=== PATIENT | male | born 1935 | race Caucasian/White ===

== ENCOUNTER 2024-05-03 16:28 | Inpatient (IN) | payer MEDICARE, SELFPAY ==
[2024-05-03] VITALS (9 sets, daily range): BP systolic 121–170; BP diastolic 61–110; BMI 21.9
[2024-05-03 12:20] LABS: % Basophils 0.2 % (0-2); % Eosinophils 1.2 % (0-6); % Immature Granulocytes 0.7 % (0-0.5); % Lymphocytes 17.3 % (20.5-51.1); % Monocytes 7.8 % (1.7-9.3); % Neutrophils 72.8 % (42.2-75.2); Absolute Eosinophils 0.1 10^3/uL (0-0.7); Absolute Monocytes 0.4 10^3/uL (0.1-0.6); Absolute Neutrophils 4.1 10^3/uL (1.4-6.5); Hematocrit 42.1 % (39.0-52.0); Hemoglobin 13.9 g/dL (13.0-18.0); Mean Corpuscular Hgb 29.6 pg (27.0-31.0); Mean Corpuscular Volume 89.6 fL (80.0-94.0); Mean Platelet Volume 10.7 fL (7.4-10.4); Nucleated Red Blood Cells % 0 % (-); Platelet Count 172 10^3/uL (130-400); Red Cell Dist. Width 13.4 % (11.5-14.5); White Blood Cell Count 5.6 10^3/uL (4.8-10.8)
[2024-05-03 12:30] LABS: ALT (SGPT) 17 U/L (0-50); AST (SGOT) 28 U/L (17-59); Albumin 4.3 g/dl (3.5-5.0); Alkaline Phosphatase 129 U/L (38-126); Blood Urea Nitrogen 34 mg/dl (9-20); Calcium 9.5 mg/dl (8.4-10.2); Carbon Dioxide 20 mmol/L (22-30); Chloride 107 mmol/L (98-107); Estimated Creatinine Clearance 33 ml/min; Glucose 211 mg/dl (70-99); Potassium 4.6 mmol/L (3.5-5.1); Sodium 144 mmol/L (135-145); eGFR 44.23
--- NOTE | 2024-05-03 12:51 | ED.GENMED ---
History of Present Illness
General
Chief Complaint: Fall
Source: patient
Exam Limitations: none
Time Seen by Provider: 05/03/24 12:33
Nursing documentation reviewed up to this point in time: agreed with
History of Present Illness
History of Present Illness:
89 yo male presents to the emergency department after losing his footing and falling. He hit his head, and complains of right hip pain. His daughter notes it is
Past History
Past History
ED Past Medical History: Cancer (Bladder), CVA, GERD, HTN and Hypercholesterolemia
ED Past Surgical History: Other (Bladder and prostate removal)
Social History
Tobacco: Non-smoker
Alcohol: Daily
Personal:
Living: with family
Employment: Other
Family History
Family History: Other
Phy Exam
Physical Exam
Physical Exam:
Physical Exam
General: no apparent distress, not acutely ill
Neck: supple. no meningeal signs. normal posterior pharynx
Heart: s1/s2 regular rate and rhythm, no murmur. equal radial
pulses.
HEENT: Pupils equal round reactive to light, EOMI
Lungs: no acute respiratory distress. clear bilaterally
Abdomen: normal bowel sounds. not tender. no CVAT
Neuro: alert and oriented. no focal neurological deficits cranial nerves II through XII intact
Skin: no rash
Psychiatric: well kept. interactive and cooperative
Extremities: Right leg shortened and externally rotated, right arm contracture from prior stroke. Good distal pulses
Course
Orders/Labs/Results
Orders:
Orders
05/03/24 11:54
CR Hip - RT w/wo Pel 2-3 Vw* Urgent
Comment:
Reason For Exam: fall, hip injury
Include a pelvis x-ray?: Yes
05/03/24 11:57
Complete Blood Count/With Diff Urgent
Comprehensive Metabolic Panel Urgent
05/03/24 12:43
Electrocardiogram (*1) Stat
Reason for Study: PreOp
EKG- Treatment ONCE
05/03/24 12:44
CT Head W/o Iv Contrast Urgent
Comment:
Reason For Exam: fall
05/03/24 12:50
HYDROmorphone [Dilaudid] 0.5 mg IV NOW STA
Ondansetron Injectable [Zofran] 4 mg IV NOW STA
05/03/24 12:53
Type+Screen Urgent
05/03/24 14:58
ABO2 Urgent
BBK Wristband Number:
Associate notified that ABO2 has been ordered: [id number]
Date: 05/03/24
Time: 13:06
Plaster Foreman ID: [id number]
Abnormal Lab Results
05/03/24
11:57
MPV 10.7 H fL
(7.4-10.4)
Absolute Lymphs (auto) 1.0 L 10^3/uL
(1.2-3.4)
Immature Gran % 0.7 H %
(0-0.5)
Lymphocytes % 17.3 L %
(20.5-51.1)
Carbon Dioxide 20 L mmol/L
(22-30)
BUN 34 H mg/dl
(9-20)
Creatinine 1.5 H mg/dL
(0.7-1.3)
Glucose 211 H mg/dl
(70-99)
Alkaline Phosphatase 129 H U/L
(38-126)
05/03/24 11:57
05/03/24 11:57
Vital Signs
Initial and Last Documented VS:
Initial Vital Signs
Temp
97.1 F
05/03/24 11:46
Last Documented Vital Signs
Temp Pulse Resp BP Pulse Ox
97.1 F 100 13 166/94 94
05/03/24 11:46 05/03/24 13:45 05/03/24 13:45 05/03/24 13:33 05/03/24 13:45
MDM/Problems Addressed
Differential Diagnosis Includes:
Right hip fracture, intracranial hemorrhage
MDM/Problems Addressed:
89-year-old male with right femoral neck fracture, no other injuries noted. Admit to hospitalist, Dr. Valiente, orthopedics aware and will schedule patient for Issac arthroplasty on Wednesday.
Chronic conditions affecting care: HTN
Acute Exacerbation and/or Progression of Chronic Illness: HTN
*Radiology
Radiology exam reviewed: preliminary read by ED provider (Right hip x-ray right femoral neck fracture) and radiology read reviewed (CT head no acute findings)
*Pulse Oximetry
Patient hypoxic: no
*EKG
Interpreted by ED Provider?: Yes
EKG Intrepretation Date: 05/03/24
EKG Intrepretation Time: 12:53
Interpretation: abnormal
Comparison EKG: changes noted
Heart Rate: 99
Rate: normal
Rhythm: sinus
[place]: left axis deviation
Interval: normal interval
QRS Pattern: right bundle branch block
Ischemia: no ischemia
*Farm General Manager Interpretation
Rate: normal
Interpretation: normal
Heart Rate: 95
Rhythm: sinus
*Critical Care Note
Total Time (30-74mins, 75-104mins- exclusive of procedures): Not Applicable
Patient Management
Social determinants of health affecting care: Living situation
Discussion with other providers: Hospitalist and Building Equipment Inspector (orthopedics)
Escalation/DeEscalation of care consider admission/obs:
admit indicated
ED Attending Note
-
Portions of this chart may have been created with voice recognition software.� Occasional wrong word or��sound alike� substitutions may have occurred due to the inherent limitations of voice recognition software.
Discharge Plan
Departure
Patient Disposition: Admit
Date of Disposition: 05/03/24
Time of Disposition: 13:40
Admit to: Med/Surg
Presentation/result/management discussed w/ accepting MD/DO: Hospitalist
Patient with high blood pressure during this ER visit?: Yes
Condition: Good
Discharge Problem:
Closed displaced fracture of right femoral neck
Prescriptions:
No Action
cholecalciferol (vitamin D3) 2,000 UNITS tablet
2,000 units PO DAILY
losartan 100 MG tablet
100 mg PO HS
sennosides [senna] 8.6 mg Tablet
8.6 mg PO DAILYPRN PRN (Reason: constipation)
mirtazapine 45 mg Tablet
45 mg PO HS
omeprazole 20 MG capsule,delayed release(DR/EC)
20 mg PO BID
metoprolol tartrate 50 MG tablet
50 mg PO DAILY Qty: 30 0RF
Interventions
Interventions:
*Risk Screen - Suicide Last Done: 05/03/24 11:47
*General Assessment Last Done: 05/03/24 11:46
ED- Fall Risk Assessment Last Done: 05/03/24 11:49
*ED COVID-19 Vaccine History Last Done: 05/03/24 11:47
ED-Musculoskeletal Assessment Last Done: 05/03/24 11:51
ED- Neurological Assessment Last Done: 05/03/24 11:49
ED-Skin Assessment Last Done: 05/03/24 11:55
Discharge Date and Time
Print Language: ROMANSH
[2024-05-03] MEDS: DILAUDID 0.5 MG IV (12:52)
[2024-05-03] MEDS: ZOFRAN 4 MG IV (12:52)
--- NOTE | 2024-05-03 14:48 | HPS.HSE ---
Addendum entered and electronically signed by Baljeet Crum MD 05/03/24 18:09:
Seen and examined by me independently in collaboration with the medical videographer Bandar.
Past medical history/social history/medication/allergies reviewed.
Lab data and imaging data reviewed.
Patient with a mechanical fall which was witnessed but unfortunately sustained a right Femoral neck fracture. He was otherwise in his usual state of health. Daughter who is a retired nurse is present at the bedside.
Hemodynamically stable.
Heart sinus and persisted heart regular.
Chest was clear.
Abdomen benign.
Right residual hemiparesis noted.
Plans for surgical correction of the fracture noted.
From a preop cardiac eval-difficult to assess functional status because of right hemiparesis. RCRI-1 risk factor which puts him at a acceptable risk for cardiovascular event for proposed surgery. No further testing would change that risk. Please
proceed as planned with the surgery.
Pt wishes to be DNR/DNI.
Original Note:
Family Physician
-
Family Physician: Satinder Huerta
Chief Complaint
-
Right femoral neck fracture
History of Present Illness
89-year-old male past medical history of stroke, hypertension, hyperlipidemia, bladder cancer, nephrostomy and urostomy presents to the emergency department after a witnessed mechanical fall. Patient did hit his head but he is not on blood
thinners. Per patient's daughter patient had a stroke previously and since then has had contracture and right lower extremity weakness. In the emergency department patient received x-ray of the hip which demonstrated right femoral neck fracture as
well as CT head without contrast which demonstrated no acute intracranial bleeds. Orthopedics was consulted and is planning on taking the patient for hemiarthroplasty on 05/05/2024.
Medical History
Past Medical History
Past Medical History: Reports Cancer (Bladder cancer), CVA (Previous history of stroke, residual weakness and contracture on the right), HTN and Hypercholesterolemia
Past Surgical History: Reports Urological (Bladder removal, nephrostomy tube, urostomy tube)
Social History
Tobacco: Former Smoker (22-tvcp-voah history former smoker, stopped at age 31)
Alcohol: Occasional (1 drink per week)
Drug: None
Personal:
Living: With Family
Employment: Retired
Family History
Family History: Not pertinent
Allergies / Home Medications
Allergies reflects when Allergies were last updated in [facility].
Home Medications with original date entered in [facility]
Allergy/Medication List:
Allergies
Allergy/AdvReac Type Severity Reaction Status Date / Time
nitrofurantoin Allergy Rash Verified 05/03/24 11:49
diazepam [From Valium] AdvReac Dizziness Verified 05/03/24 11:49
Home Medications
metoprolol tartrate 50 mg tablet 50 mg PO DAILY #30 tabs 05/25/19
cholecalciferol (vitamin D3) 50 mcg (2,000 unit) tablet 2,000 units PO DAILY 08/05/21
losartan 100 mg tablet 100 mg PO HS 08/05/21
mirtazapine 45 mg tablet 45 mg PO HS 05/03/24
omeprazole 20 mg capsule,delayed release 20 mg PO BID 05/03/24
sennosides 8.6 mg tablet (senna) 8.6 mg PO DAILYPRN PRN constipation 05/03/24
Review of Systems
-
History Source: Patient
A 12 point ROS was completed and negative except as noted: No
Constitutional: Reports No Symptoms
Respiratory: Reports No Symptoms
Cardiac: Reports No Symptoms
Abdomen/GI: Reports No Symptoms
: Reports No Symptoms
Musculoskeletal: Reports Joint Pain (Right hip pain to passive and active motion)
Neurological: Reports Weakness (Patient weak on the right compared to left, contracture noted in right upper extremity. Sensation intact)
Physical Exam
Vital Signs
Vital Signs
Temp Pulse Resp BP Pulse Ox
97.1 F 100 13 166/94 94
05/03/24 11:46 05/03/24 13:45 05/03/24 13:45 05/03/24 13:33 05/03/24 13:45
Physical Exam
General: Well Developed, Well Nourished, No Apparent Distress, Comfortable and Conversant
Respiratory: Clear
Cardiac: S1/S2 and Regular Rhythm
GI: Soft, Non Tender, Non Distended and Normal Bowel Sounds
Genito-urinary: Nephrostomy Tubes and Other (Nephrostomy and urostomy tube present)
Skin: Warm and Dry
Neuro: Awake, Alert, Oriented, AO x 3 and Other (Contracture right upper extremity, weakness right lower extremity. Sensation intact bilaterally)
Psych: Calm and Intact Judgment/Insight
Laboratory Results
-
05/03/24 11:57
05/03/24 11:57
Laboratory Results
Total Bilirubin 1.0 mg/dl (0.2-1.3) 05/03/24 11:57
AST 28 U/L (17-59) 05/03/24 11:57
ALT 17 U/L (0-50) 05/03/24 11:57
Alkaline Phosphatase 129 U/L (38-126) H 05/03/24 11:57
Data Reviewed
-
Diagnostic Radiology: Report Reviewed by me and Discussed with Physician
CT Scan: Report Reviewed by me and Discussed with Physician
Lab Data: Labs Reviewed by me and Discussed with Physician
Impression/Plan
-
IMPRESSION: 89-year-old male presents to [place] ED for a witnessed mechanical fall. Found to have right femoral neck fracture.
PLAN:
#Femoral neck fracture
Witnessed mechanical fall, has happened in the past x 3
Patient not on blood thinners
Hip x-ray demonstrates right femoral neck fracture
CT head ED negative for intracranial hemorrhage
Orthopedics planning on taking patient for surgery on 05/05/2024
Bedrest, DVT prophylaxis with subcu heparin
#Preop cardiac eval
No active acute coronary syndrome
No EKG changes
RCRI 1 point, patient is low risk for cardiovascular event during surgery
Recommend continuing with proposed surgery
#Chronic kidney disease
Creatinine on admission 1.5
Per patient's daughter baseline is between 1.4 and 1.6
Currently holding losartan in anticipation for surgery
#Spasms
Patient reports leg spasms after fracture
Consider initiating cyclobenzaprine
#Hypertension
Continue home metoprolol
Currently holding losartan in anticipation for surgery
IV hydralazine for breakthrough hypertension
#GERD
Continue home omeprazole
#Nephrostomy and urostomy tubes
Patient has a history of bladder cancer and nephrolithiasis
Patient has nephrostomy and urostomy tubes currently
Monitor drainage
Anxiety/depression
Continue home mirtazapine
CODE STATUS: DNR/DNI
Diet: IDDSI 6
DVT prophylaxis: Subcu heparin every 12
Patient's daughter Pierre Ohara cell phone number: [phone]
[2024-05-03] MEDS: DILAUDID 0.25 MG IV (17:00)
--- NOTE | 2024-05-03 17:49 | PTCARENOTE ---
[facility] from [facility] s/p R femoral neck fx. Pt transferred from stretcher to bed. Pt has urostomy and R nephrostomy tube. Pt states mild pain at this time. RLE with weak pulses, and limited ROM due to fx. Pt and family oriented to call [facility]
and room, bed locked and in lowest position, call [facility] within reach.
[2024-05-03] MEDS: APRESOLINE 5 MG IV (17:58)
[2024-05-03] MEDS: LOPRESSOR 50 MG PO (17:58)
[2024-05-03] MEDS: COLACE 100 MG PO (20:58)
[2024-05-03] MEDS: PROTONIX 40 MG PO (20:58)
[2024-05-03] MEDS: TYLENOL 650 MG PO ×2 (20:59→23:19)
[2024-05-03] MEDS: SENOKOT 17.2 MG PO (20:59)
[2024-05-03] MEDS: HEPARIN 5000 UNITS SC (21:02)
[2024-05-03] MEDS: REMERON 45 MG PO (22:50)
[2024-05-04] MEDS: TYLENOL 650 MG PO ×5 (03:44→20:49)
[2024-05-04] MEDS: ROXICODONE 5 MG PO ×2 (03:44→08:50)
[2024-05-04 06:17] LABS: % Basophils 0.4 % (0-2); % Eosinophils 3.1 % (0-6); % Immature Granulocytes 0.4 % (0-0.5); % Monocytes 13.5 % (1.7-9.3); % Neutrophils 72.6 % (42.2-75.2); Absolute Eosinophils 0.3 10^3/uL (0-0.7); Absolute Lymphocytes 0.8 10^3/uL (1.2-3.4); Absolute Monocytes 1.1 10^3/uL (0.1-0.6); Absolute Neutrophils 5.9 10^3/uL (1.4-6.5); Hemoglobin 12.7 g/dL (13.0-18.0); Mean Corp Hgb Conc. 33.4 g/dL (33.0-37.0); Mean Corpuscular Hgb 29.7 pg (27.0-31.0); Mean Corpuscular Volume 88.8 fL (80.0-94.0); Mean Platelet Volume 11.4 fL (7.4-10.4); Nucleated Red Blood Cells % 0 % (-); Platelet Count 153 10^3/uL (130-400); Red Blood Cell Count 4.28 10^6/uL (4.70-6.10); Red Cell Dist. Width 13.6 % (11.5-14.5); White Blood Cell Count 8.1 10^3/uL (4.8-10.8)
[2024-05-04 06:54] LABS: ALT (SGPT) 17 U/L (0-50); AST (SGOT) 31 U/L (17-59); Albumin 3.5 g/dl (3.5-5.0); Alkaline Phosphatase 115 U/L (38-126); Blood Urea Nitrogen 35 mg/dl (9-20); Calcium 8.9 mg/dl (8.4-10.2); Carbon Dioxide 19 mmol/L (22-30); Chloride 110 mmol/L (98-107); Estimated Creatinine Clearance 33 ml/min; Glucose 122 mg/dl (70-99); Potassium 4.7 mmol/L (3.5-5.1); Sodium 144 mmol/L (135-145); Total Bilirubin 1.7 mg/dl (0.2-1.3); Total Protein 6.2 g/dl (6.3-8.2); eGFR 44.23
--- NOTE | 2024-05-04 07:53 | W.PN.UPDATE ---
Update Note
Progress Note Update
Full orthopedic consult dictated:
Dx: Displaced right femoral neck fracture
Plan: Discussed with the patient and daughter Pierre Ohara unfortunately he has a displaced right femoral neck fracture which is going to require surgical intervention with cemented hemiarthroplasty. Surgery has tentatively been scheduled for
May 05, [address] Robledo. He is going to be n.p.o. after midnight, antibiotics and antibiotic irrigation ordered. Surgery and blood consent signed by patient and daughter. He does have prior CVA with right-sided weakness so daughter
had to sign.
[2024-05-04 08:00] VITALS: BP 130/71
[2024-05-04 08:45] VITALS: BP 130/71
[2024-05-04] MEDS: SENOKOT 17.2 MG PO ×2 (08:46→20:49)
[2024-05-04] MEDS: PROTONIX 40 MG PO ×2 (08:46→20:49)
[2024-05-04] MEDS: COLACE 100 MG PO ×2 (08:46→20:49)
[2024-05-04] MEDS: VITAMIN D3 (cholecalciferol) 50 MCG PO (08:46)
[2024-05-04] MEDS: LOPRESSOR 50 MG PO (08:46)
[2024-05-04] MEDS: HEPARIN 5000 UNITS SC (08:47)
--- NOTE | 2024-05-04 12:36 | W.PN.HOSP.TC ---
Today's Communication/Plan
-
Await OR tomorrow for right femoral neck fracture repair.
Assessment / Plan
Assessment / Plan
#Femoral neck fracture
Witnessed mechanical fall, has happened in the past x 3
Patient not on blood thinners
Hip x-ray demonstrates right femoral neck fracture
CT head ED negative for intracranial hemorrhage
Orthopedics planning on taking patient for surgery on 05/05/2024
Bedrest, DVT prophylaxis with subcu heparin
#Preop cardiac eval
No active acute coronary syndrome
No EKG changes
RCRI 1 point, patient is low risk for cardiovascular event during surgery
Recommend continuing with proposed surgery
#Chronic kidney disease
Creatinine on admission 1.5
Per patient's daughter baseline is between 1.4 and 1.6
Currently holding losartan in anticipation for surgery
#Spasms
Patient reports leg spasms after fracture
Consider initiating cyclobenzaprine
#Hypertension
Continue home metoprolol
Currently holding losartan in anticipation for surgery. Blood pressure under goal.
IV hydralazine for breakthrough hypertension
#GERD
Continue home omeprazole
#Nephrostomy and urostomy tubes
Patient has a history of bladder cancer and nephrolithiasis
Patient has nephrostomy and urostomy tubes currently
Monitor drainage
Anxiety/depression
Continue home mirtazapine
CODE STATUS: DNR/DNI
Diet: IDDSI 6
DVT prophylaxis: Subcu heparin every 12
Patient's daughter Pierre Ohara cell phone number: [phone]
Anticipated Discharge: > 48 hours
Subjective/Interval History
-
Date of Service: May 04, 2024
await hip fracture repair surgery.
No overnight events.
Denies any shortness of breath or chest pain. No nausea vomiting.
Right hip pain manageable with the pain medication.
Objective Data
-
Labs:
Laboratory Results
05/04/24
04:34
WBC 8.1
Hgb 12.7 L
Hct 38.0 L
Plt Count 153
Sodium 144
Potassium 4.7
Chloride 110 H
Carbon Dioxide 19 L
BUN 35 H
Creatinine 1.5 H
Glucose 122 H
Calcium 8.9
Total Bilirubin 1.7 H
AST 31
ALT 17
Alkaline Phosphatase 115
Vital Signs:
Vital Signs
Temp Pulse Resp BP Pulse Ox
97.5 F 72 18 130/71 100
05/04/24 08:00 05/04/24 08:00 05/04/24 08:00 05/04/24 08:00 05/04/24 08:43
I&O
05/03/24 05/04/24 05/05/24
06:59 06:59 06:59
Intake Total
Output Total 600 / 600
Balance -576 / -576
Review of Systems
-
Constitutional: Denies Fever
EENT: Denies Sore Throat
Respiratory: Denies Cough
Cardiac: Denies Palpitations
Abdomen/GI: Denies Abdominal Pain
Neuro: Denies Dizzy
Physical Exam
-
General: No Apparent Distress
HEENT: Moist Mucous Membranes
Respiratory: Clear to Auscultation
Cardiac: Regular Rhythm and S1/S2
GI: Soft and Nontender
Neuro: AO x 3; Negative No Motor Deficits (Right hemiparesis since yesterday)
Psych: Calm
Data Reviewed
-
Labs: Labs Reviewed by me
--- NOTE | 2024-05-04 14:18 | W.PN.UPDATE ---
Update Note
Progress Note Update
Patient was seen and examined. Son was at bedside. Agree with orthopedic PA note.
Patient does have a history significant of a CVA that Because significant weakness of right upper and lower extremities. He does have foot and leg drop of the right lower extremity pre-existing. He did use a walker for ambulation prior to his fall.
Right lower extremity: Positive foot and leg weakness. Positive logroll.
X-rays AP of the pelvis and AP and lateral of right hip shows a displaced right femoral neck fracture
Impression displaced right femoral neck fracture
Plan: Nonoperative and operative approaches of this were discussed. I recommend right hip hemiarthroplasty. The risks are but are not limited to infection, need for further surgery, need for physical therapy, stiffness, DVT, PE, [place], CVA,
neurovascular impairment, dislocation, periprosthetic fracture, and continued foot drop, catastrophic occurrences, etc. The postoperative regimen was discussed. All questions were answered. Consents were signed and placed on the chart.Patient is
to be n.p.o. past midnight. Anticipated surgery will be midmorning tomorrow
--- NOTE | 2024-05-04 16:45 | CM ---
Met with patient and daughter/primary contact, Pierre Ohara RN; initial assessment completed with daughter
Patient was not wearing hearing aids
Pharmacy verified: [facility] @ [address] [place] [address]
Patient and (who has Dementia) live in a one floor in-law suite attached to son's home; 1 step to enter; bath has shower stall; uses shower chair
Per Daughter, her father is the primary caregiver for her mother
PLOF: Limited mobility of Right Arm; Ambulated w/ rolling walker; needs assistance with some ADLs; feeds and bathes self; able to manage ostomies and medications; they have a cleaning service; able to do the laundry;
daughter prepares meals; does not drive
SNF utilization history: [facility] (not a preference if SNF is recommended)
If acute rehab is recommended, preference is [facility]
If SNF is recommended, [facility] is preference
Patient scheduled for surgery tomorrow, 05/05/24
Plan: disposition at discharge is pending hospital course; CM will monitor for needs and coordinate care
[2024-05-04 16:51] VITALS: BP 129/66
[2024-05-04 20:00] VITALS: BP 124/64
--- NOTE | 2024-05-04 20:13 | W.PN.UPDATE ---
Update Note
Progress Note Update
Hold Heparin now in anticipation of surgery.
[2024-05-04] MEDS: HEPARIN SC (20:36)
[2024-05-04] MEDS: REMERON 45 MG PO (22:23)
[2024-05-04 22:41] VITALS: BP 123/68
[2024-05-05] VITALS (12 sets, daily range): BP systolic 104–150; BP diastolic 57–85
[2024-05-05] MEDS: TYLENOL 650 MG PO ×3 (00:45→20:46)
[2024-05-05] MEDS: TYLENOL PO ×3 (04:45→12:16)
--- NOTE | 2024-05-05 05:59 | PTCARENOTE ---
Pt gown, and linen changed and first CHG wipes complete. Pt confused and not oriented to place while bed change and CHG wipes completed. Pt aggressive to staff and stating he thinks he is in his own home. Continued to reorient pt. Skin tear formed
from grabbing onto bed rails on Left hand. Cleansed with saline and gauze and tape applied.
--- NOTE | 2024-05-05 07:48 | W.PN.UPDATE ---
Update Note
Progress Note Update
Patient resting comfortably in bed this morning. Reports pain in the hip. Plan for OR later today with Dr. Robledo. Remain NPO. Will continue to follow along.
--- NOTE | 2024-05-05 09:01 | W.PN.HOSP.TC ---
Addendum entered and electronically signed by Baljeet Crum MD 05/05/24 15:16:
Seen and examined by me independently in collaboration with the medical equipment technician.
Lab data and imaging data reviewed.
Addendum as below :
Patient seen in his room post surgery.
He is comfortable. He is alert and oriented to place and person. Family at bedside.
Afebrile and hemodynamically stable.
No respiratory distress. Chest clear.
There was a morning report of confusion and agitation. no agitation currently.
Will watch out for post Anesthesia confusion and as well as issues( made aware to me by daughter)
Original Note:
Today's Communication/Plan
-
Patient be taken for surgery by orthopedics for right hip fracture
Assessment / Plan
Assessment / Plan
#Femoral neck fracture
Witnessed mechanical fall, has happened in the past x 3
Patient not on blood thinners
Hip x-ray demonstrates right femoral neck fracture
CT head ED negative for intracranial hemorrhage
Orthopedics planning on taking patient for surgery on 05/05/2024
Patient made n.p.o. after midnight, heparin stopped at night and anticipation for surgery today
#Confusion
Nursing reports patient was agitated and confused overnight, fighting with them
Patient confused on interview this morning, able to be redirected and pleasant
Will try to avoid restraints and sedation if possible
#Preop cardiac eval
No active acute coronary syndrome
No EKG changes
RCRI 1 point, patient is low risk for cardiovascular event during surgery
Recommend continuing with proposed surgery
#Chronic kidney disease
Creatinine on admission 1.5
Per patient's daughter baseline is between 1.4 and 1.6
Currently holding losartan in anticipation for surgery
#Spasms
Patient reports leg spasms after fracture
#Hypertension
Continue home metoprolol
Currently holding losartan in anticipation for surgery. Blood pressure under goal.
IV hydralazine for breakthrough hypertension
#GERD
Continue home omeprazole
#Nephrostomy and urostomy tubes
Patient has a history of bladder cancer and nephrolithiasis
Patient has nephrostomy and urostomy tubes currently
Monitor drainage
Anxiety/depression
Continue home mirtazapine
CODE STATUS: DNR/DNI
Diet: IDDSI 6
DVT prophylaxis: Subcu heparin every 12 (currently holding)
Patient's daughter Pierre Ohara cell phone number: [phone]
Anticipated Discharge: 24 - 48 hours
Subjective/Interval History
-
Date of Service: May 05, 2024
Patient was n.p.o. after midnight in anticipation for surgery, heparin was stopped in anticipation for surgery overnight
Nurse reports episodes of agitation overnight, patient confused and fighting with nursing
Patient hit his arm on bed and now has skin tear
Will try to avoid sedation and restraints if possible
Patient confused at time of interview, able to be redirected and pleasant
Objective Data
-
Vital Signs:
Vital Signs
Temp Pulse Resp BP Pulse Ox
98.3 F 81 16 150/84 95
05/05/24 07:36 05/05/24 07:36 05/05/24 07:36 05/05/24 07:36 05/05/24 07:36
I&O
05/04/24 05/05/24 05/06/24
06:59 06:59 06:59
Intake Total 1200 / 1200
Output Total 600 / 600 650 / 650
Balance -576 / -576 550 / 550
Review of Systems
-
Unable to obtain full review of systems at this time due to: Dementia
Physical Exam
-
General: No Apparent Distress, Conversant and Appears Chronically Ill
Respiratory: Clear to Auscultation
Cardiac: Regular Rhythm and S1/S2
GI: Soft, Nontender, Nondistended and Normal Bowel Sounds
Skin: Warm and Dry
Neuro: Awake; Negative Alert, Oriented or AO x 3
Psych: Confused
Data Reviewed
-
Labs: Labs Reviewed by me and Discussed with Physician
[2024-05-05] MEDS: LOPRESSOR 50 MG PO (09:54)
[2024-05-05] MEDS: PROTONIX 40 MG PO ×2 (09:54→20:46)
[2024-05-05] MEDS: VITAMIN D3 (cholecalciferol) PO (09:54)
[2024-05-05] MEDS: COLACE PO (09:54)
[2024-05-05] MEDS: SENOKOT PO (09:54)
--- NOTE | 2024-05-05 10:09 | PTCARENOTE ---
to OR with 2 transport and 2 family members. pills given with very small amount of applesauce. OR nurse notified.
--- NOTE | 2024-05-05 14:52 | PTCARENOTE ---
pt returned at 1450, ETT GA, 100mls EBL, abductor pillow in place, primaseal in place with mod drainage. 2 daughters in room. bed low 100mls NormR LFA
--- NOTE | 2024-05-05 16:22 | CM ---
Chart reviewed: Patient had surgery today: s/p R Hip hemiarthroplasty; Care team will watch out for post Anesthesia confusion; as well as sundowning issues; PT plans to assess tomorrow
CM met with patient's daughter, Pierre Ohara RN. If SNF recommended, daughter's preference [facility]
Plan: CM will continue to monitor patient; if PT recommends SNF will send referral to [facility] (NO AUTH needed)
[2024-05-05] MEDS: ASPIRIN 325 MG PO (16:42)
[2024-05-05] MEDS: ANCEF 5 IV (18:08)
[2024-05-05] MEDS: NORMOSOL-R/PLASMALYTE-A 1000 IV (20:45)
[2024-05-05] MEDS: SENOKOT 17.2 MG PO (20:46)
[2024-05-05] MEDS: COLACE 100 MG PO (20:46)
[2024-05-05] MEDS: BACTROBAN 2% OINTMENT 1 APPLIC NASAL (20:47)
[2024-05-05] MEDS: REMERON 45 MG PO (22:45)
[2024-05-06] VITALS (9 sets, daily range): BP systolic 88–145; BP diastolic 53–74; PULSE 69; O2SAT 88
[2024-05-06] MEDS: TYLENOL 650 MG PO ×7 (00:31→23:43)
[2024-05-06] MEDS: ANCEF 5 IV (03:20)
[2024-05-06 06:42] LABS: Hematocrit 32.9 % (39.0-52.0); Hemoglobin 11.2 g/dL (13.0-18.0); Mean Corpuscular Hgb 30.5 pg (27.0-31.0); Mean Corpuscular Volume 89.6 fL (80.0-94.0); Mean Platelet Volume 11.4 fL (7.4-10.4); Platelet Count 129 10^3/uL (130-400); Red Blood Cell Count 3.67 10^6/uL (4.70-6.10); Red Cell Dist. Width 13.6 % (11.5-14.5); White Blood Cell Count 8.1 10^3/uL (4.8-10.8)
[2024-05-06 07:06] LABS: Blood Urea Nitrogen 43 mg/dl (9-20); Calcium 8.2 mg/dl (8.4-10.2); Carbon Dioxide 19 mmol/L (22-30); Chloride 108 mmol/L (98-107); Estimated Creatinine Clearance 31 ml/min; Glucose 145 mg/dl (70-99); Potassium 4.5 mmol/L (3.5-5.1); Sodium 140 mmol/L (135-145); eGFR 40.93
[2024-05-06] MEDS: PROTONIX 40 MG PO ×2 (08:04→20:32)
[2024-05-06] MEDS: SENOKOT 17.2 MG PO ×2 (08:05→20:32)
[2024-05-06] MEDS: COLACE 100 MG PO ×2 (08:05→20:32)
[2024-05-06] MEDS: VITAMIN D3 (cholecalciferol) 50 MCG PO (08:06)
[2024-05-06] MEDS: ASPIRIN 325 MG PO (08:06)
[2024-05-06] MEDS: LOPRESSOR 50 MG PO (08:06)
[2024-05-06] MEDS: BACTROBAN 2% OINTMENT 1 APPLIC NASAL ×2 (08:44→20:32)
--- NOTE | 2024-05-06 09:24 | W.PN.HOSP.TC ---
Addendum entered and electronically signed by Baljeet rCum MD 05/06/24 15:19:
Seen and examined by me independently in collaboration with the medical assistant.
Lab data and imaging data reviewed.
Addendum as below :
Postop day 1-no confusion. Hemodynamically stable. No hypoxia. Tolerating diet. Pain adequately controlled.
Worked with PT OT today.
Start discharge planning to rehab. Medically stable for discharge to rehab when bed available.
Original Note:
Today's Communication/Plan
-
Continue working with PT OT
Pain management
SNF to
Assessment / Plan
Assessment / Plan
#Femoral neck fracture
Witnessed mechanical fall, has happened in the past x 3
Patient not on blood thinners
Hip x-ray demonstrates right femoral neck fracture
CT head ED negative for intracranial hemorrhage
Patient's status post orthopedic right hip surgery on 05/05/2024
Continue working with PT OT
Post op pain 0/10 patient requiring no pain medications
Tentatively planning to discharge to [facility]
#Confusion
Nursing reports patient slightly confused overnight
Family hired a outside sitter to be with patient overnight
Will continue to avoid restraints and sedation if possible
#Chronic kidney disease
Creatinine on admission 1.5, today 1.6
Per patient's daughter baseline is between 1.4 and 1.6
#Spasms
Patient reports leg spasms after fracture
#Hypertension
Continue home metoprolol
Restarted losartan with SBP holding parameters
Blood pressure under goal.
IV hydralazine for breakthrough hypertension
#GERD
Continue home omeprazole
#Nephrostomy and urostomy tubes
Patient has a history of bladder cancer and nephrolithiasis
Patient has nephrostomy and urostomy tubes currently
Monitor drainage
Anxiety/depression
Continue home mirtazapine
CODE STATUS: DNR/DNI
Diet: IDDSI 6
DVT prophylaxis: Subcu heparin every 12 (currently holding)
Patient's daughter Pierre Ohara cell phone number: [phone]
Anticipated Discharge: > 48 hours
Subjective/Interval History
-
Date of Service: May 06, 2024
Nurse reports slight episode of confusion overnight, but redirectable
Patient had a sitter in room that was paid for by the family, had a good night with sitter
Objective Data
-
Labs:
Laboratory Results
05/06/24
06:05
WBC 8.1
Hgb 11.2 L
Hct 32.9 L
Plt Count 129 L
Sodium 140
Potassium 4.5
Chloride 108 H
Carbon Dioxide 19 L
BUN 43 H
Creatinine 1.6 H
Glucose 145 H
Calcium 8.2 L
Vital Signs:
Vital Signs
Temp Pulse Resp BP Pulse Ox
97.6 F 93 16 145/71 94
05/06/24 07:59 05/06/24 07:59 05/06/24 07:59 05/06/24 07:59 05/06/24 07:59
I&O
05/05/24 05/06/24 05/07/24
06:59 06:59 06:59
Intake Total 1200 / 1200 740 / 740
Output Total 650 / 650 750 / 750 120 / 120
Balance 550 / 550 -10 / -10 -120 / -120
Review of Systems
-
Unable to obtain full review of systems at this time due to: Dementia
Constitutional: Reports No Symptoms
Respiratory: Reports No Symptoms
Cardiac: Reports No Symptoms
Musculoskeletal: Reports No Symptoms
Physical Exam
-
General: No Apparent Distress, Comfortable and Conversant
Respiratory: Clear to Auscultation
Cardiac: Regular Rhythm and S1/S2
GI: Soft, Nontender, Nondistended and Normal Bowel Sounds
Musculoskeletal: No Edema and Other (Patient had no pain on palpation of right hip)
Skin: Warm and Dry
Neuro: Other (Right side weaker than left, known, history of prior stroke. Contracture of right arm)
Psych: Calm and Confused
Data Reviewed
-
Diagnostic Radiology: Report Reviewed by me and Discussed with Physician
Labs: Labs Reviewed by me and Discussed with Physician
--- NOTE | 2024-05-06 10:56 | CM ---
CM following. PT eval post op pending.
--- NOTE | 2024-05-06 11:17 | W.PN.ORTHO ---
Today's Communication / Plan
-
89-year-old male postop day 1 right hip hemiarthroplasty with Dr. Robledo.
-PT/OT/DC planning. Assist devices as indicated. Fall precautions and early mobility. History of right-sided weakness
-Posterior hip precautions x 6 weeks
-ASA for DVT prophylaxis x 4 weeks unless recommended otherwise per primary
-Diet per primary
-Pain control with current regimen
-Orthopedic surgery will continue to follow
Assessment
.
Distal Motor Intact: Yes
Dressing:
Clean, dry and intact.
Assessment:
Postoperative images show status post right hip hemiarthroplasty without evidence of hardware or osseous complication
Plan
.
Surgery / Date: 05/05/2024 R hip hemiarthroplasty w/ Dr. Robledo
Activity:
Out of bed.
PT/OT
Subjective
.
.:
Patient resting comfortably.
Vital Signs and Labs
.
Vital Signs and Labs:
Lab Results
05/06/24 06:05
05/06/24 06:05
Temp Pulse Resp BP Pulse Ox
97.6 F 93 16 145/71 94
05/06/24 07:59 05/06/24 07:59 05/06/24 07:59 05/06/24 07:59 05/06/24 07:59
Non-invasive Hgb result: 11
Physical Exam
-
Examination of the right lower extremity shows intact dressing with no surrounding erythema or drainage. Mild central strikethrough. Equal leg length. Demonstrates motor and sensation intact L5-S1 to baseline
[2024-05-06] MEDS: REMERON 45 MG PO (22:23)
--- NOTE | 2024-05-07 01:36 | W.PN.UPDATE ---
Update Note
Progress Note Update
RN notifies RADIOLOGY THERAPIST patient has a strong odor to urine in Urostomy, yellow and cloudy urine. No leakage and bag was changed recently per RN. no fever chills, will order a UA
[2024-05-07] MEDS: TYLENOL PO ×2 (04:54→23:05)
[2024-05-07 05:24] LABS: Urine Albumin Trace (Neg - Trace); Urine Bilirubin Negative (Negative); Urine Character Slightly Cloudy (Clear); Urine Color Yellow; Urine Glucose Negative (Negative); Urine Ketone Negative (Negative); Urine Leukocyte 2+ (Negative); Urine Nitrite Negative (Negative); Urine Occult Blood Trace (Negative); Urine Urobilinogen Negative (Neg - 1+)
[2024-05-07 06:15] LABS: Urine Bacteria Many (Negative); Urine Mucus Moderate; Urine White Cell 60-70 /HPF (0-5)
[2024-05-07 06:17] LABS: Urine Amorphous Seen; Urine Squamous Cell >30 /LPF (Few)
[2024-05-07 06:33] LABS: Hematocrit 33.1 % (39.0-52.0); Hemoglobin 11.2 g/dL (13.0-18.0); Mean Corp Hgb Conc. 33.8 g/dL (33.0-37.0); Mean Corpuscular Hgb 30.9 pg (27.0-31.0); Mean Corpuscular Volume 91.4 fL (80.0-94.0); Mean Platelet Volume 11.2 fL (7.4-10.4); Platelet Count 145 10^3/uL (130-400); Red Blood Cell Count 3.62 10^6/uL (4.70-6.10); Red Cell Dist. Width 14.1 % (11.5-14.5); White Blood Cell Count 7.4 10^3/uL (4.8-10.8)
[2024-05-07 07:11] LABS: Blood Urea Nitrogen 45 mg/dl (9-20); Calcium 8.3 mg/dl (8.4-10.2); Carbon Dioxide 23 mmol/L (22-30); Chloride 108 mmol/L (98-107); Estimated Creatinine Clearance 29 ml/min; Glucose 107 mg/dl (70-99); Potassium 4.3 mmol/L (3.5-5.1); Sodium 141 mmol/L (135-145); eGFR 38.06
[2024-05-07 07:15] VITALS: BP 159/79
[2024-05-07] MEDS: TYLENOL 650 MG PO ×4 (08:50→19:36)
[2024-05-07] MEDS: ASPIRIN 325 MG PO (08:51)
[2024-05-07] MEDS: VITAMIN D3 (cholecalciferol) 50 MCG PO (08:51)
[2024-05-07] MEDS: PROTONIX 40 MG PO ×2 (08:51→19:36)
[2024-05-07] MEDS: SENOKOT 17.2 MG PO (08:52)
[2024-05-07] MEDS: LOPRESSOR 50 MG PO (08:52)
[2024-05-07] MEDS: COZAAR 100 MG PO (08:53)
[2024-05-07] MEDS: COLACE 100 MG PO (08:55)
--- NOTE | 2024-05-07 10:59 | W.PN.ORTHO ---
Today's Communication / Plan
-
89-year-old male postop day 2 right hip hemiarthroplasty with Dr. Robledo.
-Dressing change with no active bleeding. Surgical site well-approximated without surrounding erythema or drainage
-PT/OT/DC planning. Assist devices as indicated. Fall precautions and early mobility. History of right-sided weakness
-Posterior hip precautions x 6 weeks
-ASA for DVT prophylaxis x 4 weeks unless recommended otherwise per primary
-Diet per primary
-Pain control with current regimen
-Orthopedic surgery will follow peripherally; discharge information completed. Please reengage with further questions or concerns
Assessment
.
Distal Motor Intact: Yes
Dressing:
Clean, dry and intact. Mild strikethrough
Plan
.
Surgery / Date: 05/05/2024 R hip hemiarthroplasty w/ Dr. Robledo
Activity:
Out of bed.
PT/OT
Subjective
.
.:
Patient resting comfortably.
Vital Signs and Labs
.
Vital Signs and Labs:
Lab Results
05/07/24 05:44
05/07/24 05:44
Temp Pulse Resp BP Pulse Ox
97.5 F 87 18 159/79 96
05/07/24 07:15 05/07/24 07:15 05/07/24 07:15 05/07/24 07:15 05/07/24 07:15
Non-invasive Hgb result: 12.8
--- NOTE | 2024-05-07 11:45 | W.PN.HOSP.TC ---
Today's Communication/Plan
-
Discharge planning to SNF
Assessment / Plan
Assessment / Plan
Assessment
89-year-old male with past medical history significant for stroke, hypertension, hyperlipidemia, bladder cancer, nephrostomy/urostomy presented after witnessed mechanical fall. CT head�no acute intracranial bleeds. X-ray of the hip showed evidence
of right femoral neck fracture. Orthopedics was consulted and patient underwent right hip hemiarthroplasty, POD#2.
Impression
Right femoral neck fracture
Asymptomatic bacteriuria/pyuria
Chronic kidney disease
Hypertension
GERD
History of bladder cancer/ nephrolithiasis
Anxiety/depression
Plan
# Right femoral neck fracture s/p right hip hemiarthroplasty, POD #2
Witnessed mechanical fall
Patient not on blood thinners
Hip x-ray demonstrates right femoral neck fracture
CT head ED negative for intracranial hemorrhage
Continue working with PT OT
Post op pain 0/10 patient requiring no pain medications
Tentatively planning to discharge to [facility]
#Asymptomatic bacteriuria/pyuria
Patient is afebrile
No elevated white count
Microscopic hematuria
No CVA tenderness on exam
Patient on nephrostomy/urostomy tubes
Monitor off of antibiotics for now
Trend CBC, temperatures
Monitor nephrostomy/urostomy tube output.
#Chronic kidney disease
Creatinine on admission 1.5, today 1. 7
Per patient's daughter baseline is between 1.4 and 1.6
Monitor BMP
#Hypertension
Continue home metoprolol
Restarted losartan with SBP holding parameters
Blood pressure under goal.
IV hydralazine for breakthrough hypertension
#GERD
Continue home omeprazole
#History of bladder cancer and nephrolithiasis
Patient has nephrostomy and urostomy tubes in place
Monitor drainage
#Anxiety/depression
Continue home mirtazapine
DVT prophylaxis
Aspirin
DNR
Anticipated Discharge: Within 24 hours
Subjective/Interval History
-
Date of Service: May 07, 2024
Patient reports no pain at the operated site. No fever/chills overnight.
As per the providers note overnight�patient has a strong odor to urine in Urostomy, yellow and cloudy urine. Urinalysis was ordered.
Objective Data
-
Labs:
Laboratory Results
05/07/24
05:44
WBC 7.4
Hgb 11.2 L
Hct 33.1 L
Plt Count 145
Sodium 141
Potassium 4.3
Chloride 108 H
Carbon Dioxide 23
BUN 45 H
Creatinine 1.7 H
Glucose 107 H
Calcium 8.3 L
Vital Signs:
Vital Signs
Temp Pulse Resp BP Pulse Ox
97.5 F 87 18 159/79 96
05/07/24 07:15 05/07/24 07:15 05/07/24 07:15 05/07/24 07:15 05/07/24 07:15
I&O
05/06/24 05/07/24 05/08/24
06:59 06:59 06:59
Intake Total 740 / 740 1020 / 1020
Output Total 750 / 750 820 / 820
Balance -10 / -10 200 / 200
Review of Systems
-
All other systems: Reviewed and negative (As per the history)
Physical Exam
-
General: No Apparent Distress and Comfortable
HEENT: Normocephalic and Atraumatic
Respiratory: Clear to Auscultation
Cardiac: Regular Rhythm and S1/S2
GI: Soft, Nontender, Nondistended and Normal Bowel Sounds
Musculoskeletal: Other (Contracture of the right upper extremity, weakness secondary to CVA. Right lower extremity-intact dressing at the operated site. Distal neurovasculature intact.)
Skin: Warm and Dry
Neuro: Awake, Alert, Oriented, AO x 3 and Other (Weakness in the right upper and lower extremity compared to the left-known history of prior stroke)
Psych: Calm
[2024-05-07 12:17] VITALS: BP 119/63; PULSE 73; O2SAT 95
[2024-05-07 15:15] VITALS: BP 103/51
--- NOTE | 2024-05-07 15:22 | W.PN.UPDATE ---
Update Note
Progress Note Update
Seen and examined by me independently in collaboration with the hospitalist medical director.
Lab data and imaging data reviewed.
Addendum as below :
Doing well postoperatively. No new issues.
Continue with current treatments.
Medically stable for discharge to rehab when bed available.
[2024-05-07] MEDS: COLACE PO (19:36)
[2024-05-07] MEDS: SENOKOT PO (19:36)
[2024-05-07] MEDS: REMERON 45 MG PO (21:09)
[2024-05-07 23:05] VITALS: BP 121/95
[2024-05-08] MEDS: TYLENOL PO (03:47)
[2024-05-08 07:16] VITALS: BP 155/81
--- NOTE | 2024-05-08 07:23 | W.PN.HOSP.TC ---
Addendum entered and electronically signed by Julianne Eldridge MD 05/08/24 18:36:
I saw and evaluated the patient independently. I reviewed the resident�s note and agree with findings and plan as documented by Dr. Cueto.
GENERAL: chronically ill appearing male in no apparent distress
HEENT: NC/AT
HEART: regular rate and rhythm, +S1, +S2
LUNGS : clear to auscultation bilaterally
ABDOM: soft, nontender, nondistended, + bowel sounds
EXT: no cyanosis, clubbing, or edema
Right femoral neck fracture due to witnessed mechanical fall s/p right hip hemiarthroplasty, POD #3--apprec ortho--DVT prophylaxis of 325mg daily x 4 weeks--pt accepted to SNF at [facility] (on admission, CT head ED negative for intracranial
hemorrhage)
Asymptomatic bacteriuria/pyuria--afebril, WBC WNL--pt with nephrostomy and urostomy so likely will always be 'positive' for hematuria/bacteriuria--no need for ABX
Chronic kidney disease--presumed stage 3--Per patient's daughter baseline is between 1.4 and 1.6
Essential Hypertension--Continue home metoprolol/losartarn
GERD--Continue home omeprazole
History of bladder cancer and nephrolithiasis--Patient has nephrostomy and urostomy tubes in place
Anxiety/depression-Continue home mirtazapine
DVT prophylaxis--Aspirin
Code status --DNR
OK for d/c to [facility] when bed available
Original Note:
Today's Communication/Plan
-
Discharge patient o [facility]
Assessment / Plan
Assessment / Plan
Assessment
89-year-old male with past medical history significant for stroke, hypertension, hyperlipidemia, bladder cancer, nephrostomy/urostomy presented after witnessed mechanical fall. CT head�no acute intracranial bleeds. X-ray of the hip showed evidence
of right femoral neck fracture. Orthopedics was consulted and patient underwent right hip hemiarthroplasty, POD#3.
Impression
Right femoral neck fracture
Asymptomatic bacteriuria/pyuria
Chronic kidney disease
Hypertension
GERD
History of bladder cancer/ nephrolithiasis
Anxiety/depression
Plan
# Right femoral neck fracture s/p right hip hemiarthroplasty, POD #3
Witnessed mechanical fall
Patient not on blood thinners
Hip x-ray demonstrates right femoral neck fracture
CT head ED negative for intracranial hemorrhage
Post op pain 0/10 patient requiring no pain medications
Discharge to [facility] once bed availability confirmed
#Asymptomatic bacteriuria/pyuria
Patient is afebrile
No elevated white count
Microscopic hematuria
No CVA tenderness on exam
Patient on nephrostomy/urostomy tubes
#Chronic kidney disease
05/07 1.7
Per patient's daughter baseline is between 1.4 and 1.6
Monitor BMP
#Hypertension
Continue home metoprolol
Contiue losartan with SBP holding parameters ,continue on discharge
#GERD
Continue home omeprazole
#History of bladder cancer and nephrolithiasis
Patient has nephrostomy and urostomy tubes in place
Monitor drainage
#Anxiety/depression
Continue home mirtazapine
DVT prophylaxis
Aspirin
DNR
Anticipated Discharge: Today
Subjective/Interval History
-
Date of Service: May 08, 2024
No active issues, patient stable, afebrile and lab values are wnl
Objective Data
-
Vital Signs:
Vital Signs
Temp Pulse Resp BP Pulse Ox
98.7 F 88 24 121/95 94
05/07/24 23:05 05/07/24 23:05 05/07/24 23:05 05/07/24 23:05 05/07/24 23:05
I&O
05/07/24 05/08/24 05/09/24
06:59 06:59 06:59
Intake Total 1020 / 1020 720 / 720
Output Total 820 / 820 1045 / 1045
Balance 200 / 200 -325 / -325
Review of Systems
-
History Source: Patient and Family
All other systems: Reviewed and negative
Physical Exam
-
General: No Apparent Distress and Comfortable
HEENT: Normocephalic and Moist Mucous Membranes
Respiratory: Clear to Auscultation
Cardiac: Regular Rhythm and S1/S2
GI: Soft and Nontender
Genito-urinary: No Costovertebral Tender and Nephrostomy Tubes
Musculoskeletal: No Clubbing, No Cyanosis and No Edema
Skin: Warm and Dry
Neuro: Awake, Alert and No Motor Deficits (right lower extremity hemiparesis)
Psych: Calm
[2024-05-08] MEDS: COLACE PO (08:38)
[2024-05-08] MEDS: SENOKOT PO (08:39)
[2024-05-08] MEDS: ASPIRIN 325 MG PO (09:09)
[2024-05-08] MEDS: COZAAR 100 MG PO (09:09)
[2024-05-08] MEDS: VITAMIN D3 (cholecalciferol) 50 MCG PO (09:09)
[2024-05-08] MEDS: LOPRESSOR 50 MG PO (09:09)
[2024-05-08] MEDS: TYLENOL 650 MG PO ×4 (09:09→19:42)
[2024-05-08] MEDS: PROTONIX 40 MG PO ×2 (09:09→19:42)
[2024-05-08 12:13] VITALS: BP 112/74; BP 131/66; PULSE 81; O2SAT 93
[2024-05-08 12:17] VITALS: BP 131/66; PULSE 88; O2SAT 94
--- NOTE | 2024-05-08 14:13 | CM ---
Addendum entered by Cecille Lee 05/08/24 16:03:
Transport at 5:30-6PM
Facility and pts daughter Pierre made aware of transport time
Addendum entered by Cecille Lee 05/08/24 15:09:
Pt medically ready for discharge
Spoke with Virginia at [facility] - can accept today
Discussed with pts anushka Jay - agrees with plan for transfer
Plan - transfer to [facility]
R - [phone]
F - [phone]
Original Note:
Case management following for discharge planning
Chart reviewed and met with pt at bedside
PT/OT recs SNF
Accepted at [facility] pend bed availability on day of d/c
CM will cont to be available for discharge needs
Plan - anticipate transfer to [facility] when medically ready
[2024-05-08 15:25] VITALS: BP 142/77
--- NOTE | 2024-05-08 17:21 | W.DCSUMMARY ---
Addendum entered and electronically signed by Julianne Eldridge MD 05/08/24 17:44:
Read, reviewed, and agree. See same day progress note for additional details. Time spent coordinating care, DC planning, review of DC plan of care with resident, transition of care, review of records in EMR, med rec, consults, notes, d/w
consultants, nursing, family, and CM = 32 minutes. Patient actually being discharged to [facility] nursing [facility]. Patient is stable for discharge at this time.
Original Note:
Discharge Summary
Discharge Data
Date of Admission: 05/03/24
Date of Discharge: 05/08/24
-
Pending Results: No
Hospital Course
89/M with past medical history of stroke(right sided hemiparesis), Hypertension, Hyperlipidemia, bladder cancer, with nephrostomy and urostomy tubes in place presented to emergency department after a mechanical fall.He has a residual right lower
extremity weakness and contracture. An xray of the right hip showed fracture of right femoral neck. Orthopedics was consulted and a right hip hemiarthroplasty was done. Patient's post operative recovery phase was uneventful. He is afebrile and his
wbc count is within normal limits.
A ct scan of head was done to rule out bleeds. It was wnl.
He is being discharged to [facility].
Discharge Plan
-
Patient Disposition: Detention/SNF
Discharge Diagnosis/Procedures: Right hip hemiarthroplasty with Dr. Nadine Robledo 05 May 2024, asymptomatic bacteriuria, chronic kidney disease presumed stage III, essential hypertension, gastroesophageal reflux disease, history of bladder
cancer with nephrolithiasis, anxiety/depression
Condition: Good
Diet: As tolerated
Activity: As tolerated and With Walker
Additional Activity: Posterior hip precautions x 6 weeks. Hip abduction pillow while in bed
Driving Restrictions: Not until seen by your Dr
Bathing Restrictions: OK to Shower
Wound Care: Maintain dressing until 10 to 14 days from surgery. [place] may be removed between 10 and 14 days from surgery and can be done at rehab center if still present. Please contact our office if there is drainage or other wound concerns.
Instructions: Bipolar Hip Replacement (DC)
Referrals:
Satinder Huerta MD [Family Provider] - in less than 1 week
Nadine Robledo I., DO [Active] - (If at rehab center and jono may be removed there this will be done between 10 and 14 days from date of surgery. Plan for outpatient follow-up at 4 weeks from date of surgery. Contact our office sooner for
questions or concerns. If discharged from rehab prior to 10 to 14 days from date of surgery please contact our office to be scheduled for staple removal and wound check)
Additional Discharge Medication Instructions: please take aspirin with food
Prescriptions:
New
acetaminophen 325 mg Tablet
650 mg PO Q4HWA Qty: 0 0RF
aspirin 325 mg Tablet
325 mg PO DAILY Qty: 0 0RF
Continued
cholecalciferol (vitamin D3) 2,000 UNITS tablet
2,000 units PO DAILY
losartan 100 MG tablet
100 mg PO HS
sennosides [senna] 8.6 mg Tablet
8.6 mg PO DAILYPRN PRN (Reason: constipation)
mirtazapine 45 mg Tablet
45 mg PO HS
omeprazole 20 MG capsule,delayed release(DR/EC)
20 mg PO BID
metoprolol tartrate 50 MG tablet
50 mg PO DAILY Qty: 30 0RF
Discharge Orders:
Discharge Patient (As Directed); Ordered 05/08/24
Ordered By: Daphne Cueto
Discharge Date and Time
Print Language: CONGOLESE
--- NOTE | 2024-05-08 17:34 | W.DCSUMMARY ---
Discharge Summary
Discharge Data
Date of Admission: 05/03/24
Date of Discharge: 05/08/24
-
Pending Results: No
Hospital Course
89/Male with past medical history of stroke(right sided, residual hemiparesis and contracture in right lower extremity),hypertension,hyperlipidemia, bladder cancer, nephrostomy and urostomy tubes in place presented to emergency department with right
hip pain after he had a fall. He hit his head so a ct was done to rule out any intracranial bleed. An xray of right hip was done that showed right femoral neck fracture, orthopedics was consulted and right hemiarthroplasty was done. patient's
post-op recovery was uneventful.
He is afebrile, his lab values are wnl.
he is being discharged to [facility].
Discharge Plan
-
Patient Disposition: Half-Way/SNF
Discharge Diagnosis/Procedures: Right hip hemiarthroplasty with Dr. Nadine Robledo 05 May 2024, asymptomatic bacteriuria, chronic kidney disease presumed stage III, essential hypertension, gastroesophageal reflux disease, history of bladder
cancer with nephrolithiasis, anxiety/depression
Condition: Good
Diet: As tolerated
Activity: As tolerated and With Walker
Additional Activity: Posterior hip precautions x 6 weeks. Hip abduction pillow while in bed
Driving Restrictions: Not until seen by your Dr
Bathing Restrictions: OK to Shower
Wound Care: Maintain dressing until 10 to 14 days from surgery. [place] may be removed between 10 and 14 days from surgery and can be done at rehab center if still present. Please contact our office if there is drainage or other wound concerns.
Instructions: Bipolar Hip Replacement (DC)
Referrals:
Satinder Huerta MD [Family Provider] - in less than 1 week
Nadine Robledo I., DO [Active] - (If at rehab center and [place] may be removed there this will be done between 10 and 14 days from date of surgery. Plan for outpatient follow-up at 4 weeks from date of surgery. Contact our office sooner for
questions or concerns. If discharged from rehab prior to 10 to 14 days from date of surgery please contact our office to be scheduled for staple removal and wound check)
Additional Discharge Medication Instructions: please take aspirin with food
Prescriptions:
New
acetaminophen 325 mg Tablet
650 mg PO Q4HWA Qty: 0 0RF
aspirin 325 mg Tablet
325 mg PO DAILY Qty: 0 0RF
Continued
cholecalciferol (vitamin D3) 2,000 UNITS tablet
2,000 units PO DAILY
losartan 100 MG tablet
100 mg PO HS
sennosides [senna] 8.6 mg Tablet
8.6 mg PO DAILYPRN PRN (Reason: constipation)
mirtazapine 45 mg Tablet
45 mg PO HS
omeprazole 20 MG capsule,delayed release(DR/EC)
20 mg PO BID
metoprolol tartrate 50 MG tablet
50 mg PO DAILY Qty: 30 0RF
Discharge Orders:
Discharge Patient (As Directed); Ordered 05/08/24
Ordered By: Daphne Cueto
Discharge Date and Time
Print Language: SPANISH
[2024-05-08] MEDS: SENOKOT 17.2 MG PO (19:42)
[2024-05-08] MEDS: COLACE 100 MG PO (19:44)
[2024-05-08 20:10] VITALS: BP 148/70
== END 2024-05-08 20:10 | DRG 522 ==
LOC: 2 SOUTH 16:28
PROVIDERS: Emergency Medicine; Nurse Practitioner Gerontology; ADMITTING PHYSICIAN Internal Medicine; ATTENDING PHYSICIAN Internal Medicine; CONSULT PHYSICIAN Orthopaedic Surgery; EMERGENCY PHYSICIAN Emergency Medicine; FAMILY PHYSICIAN Internal Medicine
PROC: 0SRR0J9 Replacement of Right Hip Joint, Femoral Surface with Synthetic Substitute, Cemented, Open Approach (ICD-10-PCS; 2024-05-05)
DX: S72.001A Fracture of unspecified part of neck of right femur, initial encounter for closed fracture (principal); I69.351 Hemiplegia and hemiparesis following cerebral infarction affecting right dominant side; I12.9 Hypertensive chronic kidney disease with stage 1 through stage 4 chronic kidney disease, or unspecified chronic kidney disease; N18.30 Chronic kidney disease, stage 3 unspecified; F32.A Depression, unspecified; W19.XXXA Unspecified fall, initial encounter; M21.371 Foot drop, right foot; G57.21 Lesion of femoral nerve, right lower limb; E78.00 Pure hypercholesterolemia, unspecified; Z66 Do not resuscitate; F41.9 Anxiety disorder, unspecified; K21.9 Gastro-esophageal reflux disease without esophagitis; K59.00 Constipation, unspecified; Z99.89 Dependence on other enabling machines and devices; Z79.899 Other long term (current) drug therapy; Z85.51 Personal history of malignant neoplasm of bladder; Z87.891 Personal history of nicotine dependence; Z88.8 Allergy status to other drugs, medicaments and biological substances
CPT/HCPCS: 70450; 73502; 80048; 80053; 81003; 81015; 85025; 85027; 86850; 86900; 86901; 93005; 96374; 96375; 97163; 97167; 97530; 97535; 99285; C1713; C1776

== ENCOUNTER → 2024-05-10 10:21 | Outpatient (REF) | payer OTHER, MEDICARE, SELFPAY ==
[2024-05-10 12:23] LABS: % Basophils 0.3 % (0-2); % Eosinophils 5.4 % (0-6); % Immature Granulocytes 2.4 % (0-0.5); % Lymphocytes 10.6 % (20.5-51.1); % Monocytes 11.5 % (1.7-9.3); % Neutrophils 69.8 % (42.2-75.2); Absolute Eosinophils 0.4 10^3/uL (0-0.7); Absolute Immature Granulocytes 0.2 10^3/uL (0-0.05); Absolute Lymphocytes 0.8 10^3/uL (1.2-3.4); Absolute Monocytes 0.8 10^3/uL (0.1-0.6); Hematocrit 33.7 % (39.0-52.0); Hemoglobin 10.9 g/dL (13.0-18.0); Mean Corp Hgb Conc. 32.3 g/dL (33.0-37.0); Mean Corpuscular Hgb 30.3 pg (27.0-31.0); Mean Corpuscular Volume 93.6 fL (80.0-94.0); Mean Platelet Volume 10.6 fL (7.4-10.4); Nucleated Red Blood Cells % 0 % (-); Platelet Count 226 10^3/uL (130-400); Red Cell Dist. Width 14.2 % (11.5-14.5); White Blood Cell Count 7.2 10^3/uL (4.8-10.8)
[2024-05-10 12:47] LABS: Blood Urea Nitrogen 44 mg/dl (9-20); Calcium 8.5 mg/dl (8.4-10.2); Carbon Dioxide 20 mmol/L (22-30); Chloride 111 mmol/L (98-107); Glucose 97 mg/dl (70-99); Potassium 4.5 mmol/L (3.5-5.1); Sodium 142 mmol/L (135-145); eGFR 35.54
== END ==
LOC: OLABP 10:21
PROVIDERS: ATTENDING PHYSICIAN Family Medicine
DX: I10 Essential (primary) hypertension (principal); N18.9 Chronic kidney disease, unspecified; K21.9 Gastro-esophageal reflux disease without esophagitis; N20.0 Calculus of kidney; Z86.73 Personal history of transient ischemic attack (TIA), and cerebral infarction without residual deficits; I69.351 Hemiplegia and hemiparesis following cerebral infarction affecting right dominant side
CPT/HCPCS: 36415; 80048; 85025

== ENCOUNTER → 2024-05-12 09:24 | Outpatient (REF) | payer OTHER, MEDICARE, SELFPAY ==
[2024-05-12 10:27] LABS: Blood Urea Nitrogen 39 mg/dl (9-20); Calcium 8.5 mg/dl (8.4-10.2); Carbon Dioxide 17 mmol/L (22-30); Chloride 112 mmol/L (98-107); Glucose 96 mg/dl (70-99); Potassium 4.4 mmol/L (3.5-5.1); Sodium 142 mmol/L (135-145); eGFR 48.04
== END ==
LOC: OLABP 09:24
PROVIDERS: ATTENDING PHYSICIAN Family Medicine
DX: I69.351 Hemiplegia and hemiparesis following cerebral infarction affecting right dominant side (principal); I10 Essential (primary) hypertension; S72.001A Fracture of unspecified part of neck of right femur, initial encounter for closed fracture; N18.9 Chronic kidney disease, unspecified; K21.9 Gastro-esophageal reflux disease without esophagitis; Z85.51 Personal history of malignant neoplasm of bladder; N20.0 Calculus of kidney; Z86.73 Personal history of transient ischemic attack (TIA), and cerebral infarction without residual deficits
CPT/HCPCS: 36415; 80048

== ENCOUNTER → 2024-05-19 12:38 | Outpatient (REF) | payer OTHER, MEDICARE, SELFPAY ==
[2024-05-19 13:37] LABS: Blood Urea Nitrogen 35 mg/dl (9-20); Calcium 8.5 mg/dl (8.4-10.2); Carbon Dioxide 21 mmol/L (22-30); Chloride 109 mmol/L (98-107); Glucose 68 mg/dl (70-99); Potassium 4.6 mmol/L (3.5-5.1); Sodium 140 mmol/L (135-145); eGFR 44.23
== END ==
LOC: OLABP 12:38
PROVIDERS: ATTENDING PHYSICIAN Family Medicine
DX: I10 Essential (primary) hypertension (principal); N18.9 Chronic kidney disease, unspecified; K21.9 Gastro-esophageal reflux disease without esophagitis; N20.9 Urinary calculus, unspecified
CPT/HCPCS: 36415; 80048

== ENCOUNTER → 2024-05-23 12:06 | Outpatient (REF) | payer OTHER, MEDICARE, SELFPAY ==
[2024-05-23 12:30] LABS: % Basophils 0.6 % (0-2); % Eosinophils 7.4 % (0-6); % Immature Granulocytes 1.5 % (0-0.5); % Lymphocytes 23.2 % (20.5-51.1); % Monocytes 14.3 % (1.7-9.3); Absolute Eosinophils 0.4 10^3/uL (0-0.7); Absolute Immature Granulocytes 0.1 10^3/uL (0-0.05); Absolute Lymphocytes 1.3 10^3/uL (1.2-3.4); Absolute Monocytes 0.8 10^3/uL (0.1-0.6); Absolute Neutrophils 2.9 10^3/uL (1.4-6.5); Hematocrit 33.5 % (39.0-52.0); Hemoglobin 10.9 g/dL (13.0-18.0); Mean Corp Hgb Conc. 32.5 g/dL (33.0-37.0); Mean Corpuscular Hgb 30.3 pg (27.0-31.0); Mean Corpuscular Volume 93.1 fL (80.0-94.0); Mean Platelet Volume 9.9 fL (7.4-10.4); Nucleated Red Blood Cells % 0 % (-); Platelet Count 347 10^3/uL (130-400); Red Cell Dist. Width 14.3 % (11.5-14.5); White Blood Cell Count 5.4 10^3/uL (4.8-10.8)
[2024-05-23 13:42] LABS: Blood Urea Nitrogen 42 mg/dl (9-20); Calcium 8.8 mg/dl (8.4-10.2); Carbon Dioxide 20 mmol/L (22-30); Chloride 110 mmol/L (98-107); Glucose 71 mg/dl (70-99); Potassium 5.2 mmol/L (3.5-5.1); Sodium 140 mmol/L (135-145); eGFR 38.06
== END ==
LOC: OLABP 12:06
PROVIDERS: ATTENDING PHYSICIAN Family Medicine
DX: I10 Essential (primary) hypertension (principal); S72.001A Fracture of unspecified part of neck of right femur, initial encounter for closed fracture; N18.9 Chronic kidney disease, unspecified; K21.9 Gastro-esophageal reflux disease without esophagitis; Z85.51 Personal history of malignant neoplasm of bladder; N20.0 Calculus of kidney; Z86.73 Personal history of transient ischemic attack (TIA), and cerebral infarction without residual deficits; I69.351 Hemiplegia and hemiparesis following cerebral infarction affecting right dominant side
CPT/HCPCS: 36415; 80048; 85025

== ENCOUNTER → 2024-05-26 12:08 | Outpatient (REF) | payer OTHER, MEDICARE, SELFPAY ==
[2024-05-26 13:40] LABS: Carbon Dioxide 22 mmol/L (22-30); Chloride 110 mmol/L (98-107); Glucose 82 mg/dl (70-99); Potassium 4.9 mmol/L (3.5-5.1); Sodium 142 mmol/L (135-145)
[2024-05-26 13:48] LABS: Blood Urea Nitrogen 42 mg/dl (9-20); eGFR 40.93
== END ==
LOC: OLABP 12:08
PROVIDERS: ATTENDING PHYSICIAN Family Medicine
DX: I10 Essential (primary) hypertension (principal); S72.001D Fracture of unspecified part of neck of right femur, subsequent encounter for closed fracture with routine healing; N18.9 Chronic kidney disease, unspecified; K21.9 Gastro-esophageal reflux disease without esophagitis; Z85.51 Personal history of malignant neoplasm of bladder; N20.0 Calculus of kidney; Z86.73 Personal history of transient ischemic attack (TIA), and cerebral infarction without residual deficits; I69.351 Hemiplegia and hemiparesis following cerebral infarction affecting right dominant side
CPT/HCPCS: 36415; 80048

== ENCOUNTER → 2024-05-30 09:58 | Outpatient (REF) | payer OTHER, MEDICARE, SELFPAY ==
[2024-05-30 11:21] LABS: Blood Urea Nitrogen 43 mg/dl (9-20); Calcium 8.9 mg/dl (8.4-10.2); Carbon Dioxide 17 mmol/L (22-30); Chloride 114 mmol/L (98-107); Glucose 82 mg/dl (70-99); Potassium 4.9 mmol/L (3.5-5.1); Sodium 142 mmol/L (135-145); eGFR 48.04
== END ==
LOC: OLABP 09:58
PROVIDERS: ATTENDING PHYSICIAN Family Medicine
DX: I10 Essential (primary) hypertension (principal); S72.001D Fracture of unspecified part of neck of right femur, subsequent encounter for closed fracture with routine healing; N18.9 Chronic kidney disease, unspecified; K21.9 Gastro-esophageal reflux disease without esophagitis; Z85.51 Personal history of malignant neoplasm of bladder; N20.0 Calculus of kidney; Z86.73 Personal history of transient ischemic attack (TIA), and cerebral infarction without residual deficits; I69.351 Hemiplegia and hemiparesis following cerebral infarction affecting right dominant side
CPT/HCPCS: 36415; 80048

== ENCOUNTER → 2024-06-06 11:25 | Outpatient (REF) | payer OTHER, MEDICARE, SELFPAY ==
[2024-06-06 13:18] LABS: Blood Urea Nitrogen 42 mg/dl (9-20); Calcium 8.8 mg/dl (8.4-10.2); Carbon Dioxide 19 mmol/L (22-30); Chloride 111 mmol/L (98-107); Glucose 83 mg/dl (70-99); Potassium 4.5 mmol/L (3.5-5.1); Sodium 142 mmol/L (135-145); eGFR 38.06
== END ==
LOC: OLABPV 11:25
PROVIDERS: ATTENDING PHYSICIAN Family Medicine
DX: I10 Essential (primary) hypertension (principal); S72.001 Fracture of unspecified part of neck of right femur; N18.9 Chronic kidney disease, unspecified; K21.9 Gastro-esophageal reflux disease without esophagitis; Z85.51 Personal history of malignant neoplasm of bladder; N20.0 Calculus of kidney; Z86.73 Personal history of transient ischemic attack (TIA), and cerebral infarction without residual deficits; I69.351 Hemiplegia and hemiparesis following cerebral infarction affecting right dominant side
CPT/HCPCS: 36415; 80048

== ENCOUNTER → 2024-06-12 12:29 | Outpatient (REF) | payer OTHER, MEDICARE, SELFPAY ==
[2024-06-12 13:26] LABS: % Basophils 0.3 % (0-2); % Eosinophils 6.3 % (0-6); % Immature Granulocytes 1.7 % (0-0.5); % Lymphocytes 19.3 % (20.5-51.1); % Monocytes 14.2 % (1.7-9.3); % Neutrophils 58.2 % (42.2-75.2); Absolute Eosinophils 0.4 10^3/uL (0-0.7); Absolute Immature Granulocytes 0.1 10^3/uL (0-0.05); Absolute Lymphocytes 1.3 10^3/uL (1.2-3.4); Absolute Monocytes 0.9 10^3/uL (0.1-0.6); Absolute Neutrophils 3.8 10^3/uL (1.4-6.5); Hematocrit 31.2 % (39.0-52.0); Hemoglobin 10.2 g/dL (13.0-18.0); Mean Corp Hgb Conc. 32.7 g/dL (33.0-37.0); Mean Corpuscular Hgb 29.7 pg (27.0-31.0); Mean Corpuscular Volume 90.7 fL (80.0-94.0); Mean Platelet Volume 9.8 fL (7.4-10.4); Nucleated Red Blood Cells % 0 % (-); Platelet Count 238 10^3/uL (130-400); Red Blood Cell Count 3.44 10^6/uL (4.70-6.10); Red Cell Dist. Width 14.1 % (11.5-14.5); White Blood Cell Count 6.5 10^3/uL (4.8-10.8)
[2024-06-12 13:33] LABS: Blood Urea Nitrogen 37 mg/dl (9-20); Calcium 8.9 mg/dl (8.4-10.2); Carbon Dioxide 19 mmol/L (22-30); Chloride 110 mmol/L (98-107); Glucose 76 mg/dl (70-99); Potassium 4.8 mmol/L (3.5-5.1); Sodium 139 mmol/L (135-145); eGFR 52.51
== END ==
LOC: OLABP 12:29
PROVIDERS: ATTENDING PHYSICIAN Family Medicine
DX: I10 Essential (primary) hypertension (principal); N18.9 Chronic kidney disease, unspecified; K21.9 Gastro-esophageal reflux disease without esophagitis; N20.0 Calculus of kidney; I69.351 Hemiplegia and hemiparesis following cerebral infarction affecting right dominant side; Z86.73 Personal history of transient ischemic attack (TIA), and cerebral infarction without residual deficits
CPT/HCPCS: 36415; 80048; 85025